=== PATIENT | male | born 2000 | race Caucasian/White ===

== ENCOUNTER 2023-05-02 06:45 | Outpatient (CLI) | payer SELFPAY ==
--- NOTE | 2023-05-02 07:15 | US_ITS ---
WS: [id number] TESTICULAR ULTRASOUND HISTORY: left testicle abnormality COMPARISON: None available. TECHNIQUE: Real-time and color Doppler imaging or utilized to perform a testicular ultrasound. Right testicle: 3.8 cm x 2.7 cm x 2.2 cm. Normal size and echogenicity. No mass or torsion. Normal color Doppler is present throughout. Systolic and diastolic velocities are both present. No significant hydrocele. Right epididymis: Normal epididymis with no increased vascularity. Left testicle: 3.7 cm x 2.3 cm x 2.0 cm. Normal size and echogenicity. No mass or torsion. Normal color Doppler is present throughout. Systolic and diastolic velocities are both present. No significant hydrocele. Left epididymis: Normal epididymis with no increased vascularity. IMPRESSION: NORMAL TESTICULAR ULTRASOUND.
== END 2023-05-02 06:46 | disposition home or self-care (01) ==
LOC: RAD 06:46
PROVIDERS: Family Provider Family Medicine; PCP Nurse Practitioner Family; Visit Provider Nurse Practitioner Family
DX: N50.89 Other specified disorders of the male genital organs (principal)
CPT/HCPCS: 76870